=== PATIENT | male | born 1945 | race Caucasian/White ===

== ENCOUNTER 2019-06-12 09:09 | Inpatient (IN) | payer MEDICARE ==
--- NOTE | 2019-06-12 10:35 | ULT ---
EXAM: Left lower extremity venous ultrasound HISTORY: Left lower extremity pain and edema; nonhealing wound for one month COMPARISON: None TECHNIQUE: Multiplanar grayscale and color Doppler images were obtained in a left lower extremity kishor ous ultrasound. Spectral analysis of the Doppler waveforms were performed. FINDINGS: The common femoral vein, profunda femoral vein, superficial femoral vein, and popliteal vei n are normal in appearance without visible thrombus. These vessels demonstrate normal compression, flow, and augmentation. The posterior tibial vein and greater saphenous vein are patent without evidence of thrombus. IMPRESSION: No evidence of DVT.
[2019-06-12] MEDS ORDERED: Piperacillin/Tazobactam 4.5 GM VIAL ONE (12:12)
--- NOTE | 2019-06-12 12:16 | RAD ---
XR Foot Lt 3 View STANDARD History: Foot pain Comparison: Radiograph 2015 Findings: Soft tissue calcification along the great toe metatarsal phalangeal joint. There are erosio ns of the medial margin of the metatarsal head. Moderate midfoot degenerative changes, advanced for the comparison examination. No acute fracture. Impression: 1. Dense calcification/ossification along the great toe metatarsal phalangeal bursa can be seen with gout arthritis versus bursitis. 2. 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 3. Moderate midfoot dorsal edema. 4. Concern for intra-articular fracture of the proximal phalanx base small toe.
[2019-06-12 12:20] LABS: #Basophils 0.1 thou/uL (0.0-0.2); #Eosinphils 0.3 thou/uL (0.0-0.7); #Lymphocytes 1.4 thou/uL (1.20-3.40); #Monocytes 0.6 thou/uL (0.11-0.59); #Neutrophils 4.5 thou/uL (1.40-6.50); %Basophils 0.9 % (0.0-1.0); %Eosinophils 3.7 % (0.0-10.0); %Lymphocytes 21.2 % (21.0-51.0); %Monocytes 8.5 % (0.0-10.0); %Neutrophils 65.8 % (42.0-75.0); Hemoglobin 13.3 g/dL (14.0-18.0); Mean Corpuscular HGB CONC 33.8 g/dL (32.0-36.0); Mean Corpuscular Hemoglobin 28.6 pg (27.0-31.0); Mean Corpuscular Volume 84.6 fL (78.0-98.0); Mean Platelet Volume 7.3 fL (7.4-10.4); Platelet Count 202 thou/uL (130-400); RBC Distribution Width 13.2 % (11.5-14.5); Red Blood Cell (RBC) Count 4.64 mill/uL (4.70-6.10); White Blood Cell (WBC) Count 6.8 thou/uL (4.8-10.8)
[2019-06-12 12:47] LABS: ALT (SGPT) 23 U/L (8-55); AST (SGOT) 20 U/L (5-34); Albumin 4.7 g/dL (3.4-4.8); Alkaline Phosphatase 54 U/L (40-150); Anion Gap 14 mmol/L (10-20); BUN (Urea Nitrogen) 19 mg/dL (8.4-25.7); Bilirubin, Total 0.6 mg/dL (0.2-1.2); Calc. Creatinine Clearance 0 mL/min (70-130); Calcium 10.4 mg/dL (7.8-10.44); Carbon Dioxide 26 mmol/L (23-31); Chloride 101 mmol/L (98-107); Estimated GFR-MDRD 55; Globulin 2.9 g/dL (2.4-3.5); Glucose 132 mg/dL (83-110); Potassium 4.2 mmol/L (3.5-5.1); Protein, Total 7.6 g/dL (5.8-8.1); Sodium 137 mmol/L (136-145)
[2019-06-12 13:31] LABS: Bilirubin Negative (Negative); Blood, Urine Negative (Negative); Glucose, Urine (Dipstick) Negative (Negative); Leukocyte Negative (Negative); Nitrite Negative (Negative); Protein, Urine (Dipstick) Negative (Neg-Trace); Urobilinogen 0.2 mg/dL (Less than 2)
[2019-06-12 13:34] LABS: Clarity Clear (Clear)
[2019-06-12] MEDS ORDERED: Ondansetron ODT 4 MG TAB SL PRN (14:56)
[2019-06-12] MEDS ORDERED: Ondansetron PF 4 MG/2 ML Vial IVP PRN (14:56)
[2019-06-12] MEDS ORDERED: Sodium Chloride 0.9% 1,000 ML IV SCH (15:00)
[2019-06-12 15:11] VITALS: BMI 30.1
[2019-06-12] MEDS ORDERED: Piperacillin/Tazobactam 4.5 GM in Sodium Chloride 0.9% 100 ML IVPB SCH (18:00)
[2019-06-12] MEDS ORDERED: Acetaminophen 325 MG TAB PO PRN (18:25)
[2019-06-12] MEDS ORDERED: Dextrose 50% Abboject 50 ML SYRINGE SLOW IVP PRN (18:27)
[2019-06-12] MEDS ORDERED: Dextrose 5% in Water 1,000 ML IV PRN (18:27)
[2019-06-12] MEDS ORDERED: traMADol HCl 50 MG TAB PO PRN (18:31)
[2019-06-12] MEDS ORDERED: Piperacillin/Tazobactam 3.375 GM in Sodium Chloride 0.9% 100 ML IVPB SCH ×2 (18:45→22:00)
[2019-06-12] MEDS ORDERED: Vancomycin HCl 1 GM in Premix Bag 1 BAG IVPB SCH (19:00)
[2019-06-12] MEDS: Fish Oil 1,000 MG CAP PO SCH (20:22)
[2019-06-12] MEDS: metFORMIN 500 MG TAB PO SCH (20:22)
[2019-06-12] MEDS: Piperacillin/Tazobactam 3.375 GM in Sodium Chloride 0.9% 100 ML IVPB SCH (23:33)
[2019-06-13] MEDS ORDERED: Vancomycin HCl 1 GM in Premix Bag 1 BAG IVPB SCH (01:00)
--- NOTE | 2019-06-13 01:28 | HP ---
Admitting physician will be Dr. Pérez, Dr. Abundio Whitman, juan. HISTORY OF PRESENT ILLNESS: The patient is a 74-year-old male, who apparently has had some problems with an infection to his right foot. 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 The patient has not noted any fever, trauma, or injuries to his foot. He does note some foot lesions over the lateral aspect of his left foot. He notes he has had a previous history of foot infection to his left foot previously several years ago, was treated as an inpatient in the hospital. States that with IV antibiotics, he did well. Once again, he has not noted any fever. No trauma. No injuries have been noted. He has noted some pain to his left foot. He was seen and evaluated in the emergency room. A Doppler ultrasound of the left leg did not reveal any evidence of DVT. X-ray of the left foot was unremarkable. He has undergone an MRI, but those results are not present at this time. Otherwise, he has no medical complaints. He does have a history of insulin-dependent diabetes mellitus. He notes his blood sugars are generally under good control. He has had no previous history of heart disease. No previous history of peripheral vascular disease. ALLERGIES: HE HAS NO KNOWN ALLERGIES. CURRENT MEDICATIONS: 1. Januvia 100 mg daily. 2. Pioglitazone 15 mg daily. 3. Metformin 1000 mg daily. 4. Lantus insulin 20 units daily. 5. Norvasc 5 mg daily. 6. Lisinopril/hydrochlorothiazide 20/25 one daily. 7. Metoprolol 50 mg daily. 8. Simvastatin 40 mg daily. 9. Zetia 10 mg daily. 10. Niacin 500 mg once a day. 11. Fexofenadine 180 mg daily. 12. Aspirin 81 mg daily. PAST MEDICAL HISTORY: Positive for type 2 diabetes mellitus, hyperlipidemia, hypercholesterolemia, and hypertension. PAST SURGICAL HISTORY: Positive for cataract surgery and back surgery. SOCIAL AND PERSONAL HISTORY: He is retired. He does not smoke nor does he drink alcohol. REVIEW OF SYSTEMS: GI: Negative. : Negative. CARDIOVASCULAR: Otherwise negative. RESPIRATORY: Otherwise negative. NEUROLOGIC: Negative. PHYSICAL EXAMINATION: VITAL SIGNS: Temperature 98.2, pulse 70, respirations 16, O2 saturations 99%, BP 168/97. GENERAL: Alert and active male, does not appear in any distress. HEENT: Unremarkable. NECK: Supple. Full range of motion. No masses. No bruits. Thyroid is midline without thyromegaly or thyroid masses. LUNGS: Bilateral breath sounds. HEART: Reveals a regular rate and rhythm with grade 2/6 very soft systolic murmur heard best at the left sternal border. It is fairly high-pitched. No radiation to the neck is noted. ABDOMEN: Soft and nontender. Bowel sounds are present and active. No hepatosplenomegaly is noted. EXTREMITIES: The left foot is slightly swollen and edematous about the ankle and foot itself. There are some scaling lesions noted to the lateral left heel. There does not appear to be any purulent drainage. It is very mildly red. Capillary filling is noted to be good. Peripheral pulses noted to be intact to the dorsalis pedis and posterior tibial pulses. Edema extends upward past the ankle. There is a small abrasion noted to the mid tibial area. Once again, no purulent drainage otherwise noted. LABORATORY DATA: His hemoglobin is 13.3, hematocrit 39.2, white blood count 6.8. Sodium 137, potassium 4.2, chloride 101, CO2 26, BUN 19, creatinine 1.29. Urinalysis is otherwise clear. X-ray of the right foot is otherwise unremarkable except for degenerative changes. IMPRESSION: 1. Cellulitis of the left lower extremity. 2. History of type 2 diabetes mellitus. PLAN: 1. The patient has been started on Zosyn and vancomycin. We will continue those medicines. 2. We will continue current home medications. 3. Lower extremity MRI has been done. Reports are not available. Dr. Pérez will follow up with those reports in a.m. Job ID: [id number]
[2019-06-13] MEDS: Piperacillin/Tazobactam 3.375 GM in Sodium Chloride 0.9% 100 ML IVPB SCH ×4 (05:06→23:27)
--- NOTE | 2019-06-13 07:59 | MRI ---
MRI OF THE LEFT FOOT WITHOUT IV CONTRAST: INDICATION: Pain and swelling in the left foot status post antibiotics for 1.5 weeks. History of diabetes. COMPARISON: Left foot radiograph dated 06/12/2019 and 07/04/2015 prominent mid foot and great toe osteoarthrosis i s again demonstrated. Erosive change involving the medial aspect of the great toe at metatarsophalangeal head and great toe metatarsal tarsal articulation is also demonstrated with assoc iated periarticular calcification suspicious for changes of gout. There is some paratracheal erosions involving the great toe medial cuneiform articulation also possibly related to gouty arthrit is. Lisfranc alignment is preserved. There is no overt marrow signal abnormality is presence of osteomyelitis. There is diffuse edema of the dorsum of the foot, circumferential soft tissues of the ankle and distal foreleg. Medial and lateral flexor tendons are intact. The Achilles tendons are intact. Extensor tendons are intact. The ATFL, PTFL, calcaneofibular and syndesmotic ligaments are in tact. The medial deltoid is intact. There is a 6.7 x 10.7 mm osteochondral defect involving the medial talar dome. A 2 mm osteochondral defect is seen involving the lateral talar dome. Visualized p lantar fascia appears within normal limits. IMPRESSION: 1. Findings suspicious for gouty arthritis of the great toe metatarsophalangeal joint as well as the great toe metatarsal tarsal articulation. There is no overt evidence of osteomyelitis. 2. Diffuse edema of the dorsum of the foot, circumferential soft tissues of the ankle and distal fore leg. 3. Osteochondral defect of the medial talar dome with associated subchondral cystlike abnormalities. Tiny osteochondral defect is seen involving the lateral talar dome measuring approximately 2 mm. Transcribed Date/Time: 06/13/2019 9:40 AM
[2019-06-13] MEDS: Multivitamin W/ Minerals 1 TAB PO SCH (08:44)
[2019-06-13] MEDS: Amlodipine 5 MG TAB PO SCH (08:44)
[2019-06-13] MEDS: Simvastatin 40 MG TAB PO SCH (08:44)
[2019-06-13] MEDS: Ezetimibe 10 MG TAB PO SCH (08:45)
[2019-06-13] MEDS: Aspirin 81 mg Enteric Coated Tablet PO SCH (08:45)
[2019-06-13] MEDS: Enoxaparin Sodium 40 MG/0.4 ML SYRINGE SC SCH (08:45)
[2019-06-13] MEDS: Alogliptin 25 MG TAB PO SCH (08:45)
[2019-06-13] MEDS: Fish Oil 1,000 MG CAP PO SCH ×2 (08:45→19:41)
[2019-06-13] MEDS: metFORMIN 500 MG TAB PO SCH ×2 (08:45→19:43)
[2019-06-13] MEDS: Loratadine 10 MG TAB PO SCH (08:45)
[2019-06-13] MEDS ORDERED: Non-Formulary Item 1 EACH (Insulin Glargine,Hum.Rec.Anlog [Lantus Solostar] 20 UNITS) SC SCH (09:00)
[2019-06-13] MEDS: Insulin Glargine 20 UNITS in Pre-Filled Syringe SC SCH (09:07)
[2019-06-13] MEDS: Pioglitazone HCl 15 MG TAB PO SCH (09:09)
[2019-06-13] MEDS: Niacin 500 MG TAB PO SCH (09:09)
[2019-06-13] MEDS: Lisinopril/Hydrochlorothiazide 20/25 mg Tablet PO SCH (09:09)
[2019-06-13] MEDS: Insulin Regular 300 UNITS/3 ML VIAL SC PRN (12:19)
--- NOTE | 2019-06-13 14:24 | CON ---
DATE OF CONSULTATION: 06/13/2019 SUBJECTIVE: The patient was admitted yesterday for a left ankle and foot cellulitis. He has been seen over the past several weeks by Dr. Schilling and Dr. Colin. It was recommended that he come to the ER for evaluation and further treatment of his cellulitis. He was placed on vancomycin and Zosyn. This morning, he states his swelling has gone down remarkably. OBJECTIVE: VITAL SIGNS: Temperature 97.8, pulse 56, respirations 17, and blood pressure 173/82. HEART: Regular rate and rhythm with a 2/6 systolic ejection murmur. LUNGS: Clear. ABDOMEN: Soft. EXTREMITIES: Left ankle with 2+ edema. Moderate swelling of the foot, ankle and lower leg. He does have multiple abrasions of his left lateral foot and a scab of his anterior bell. LABORATORY DATA: Blood sugar 197 and 120. MRI of the foot shows no evidence of osteomyelitis. CRP was less than 0.5. ASSESSMENT: 1. Left foot and ankle cellulitis with abrasions. 2. Hypertension. 3. Hyperlipidemia. 4. Diabetes. PLAN: 1. Keep left leg elevated. 2. Continue IV Zosyn and vancomycin. 3. Recheck CBC, BMP, A1c in the a.m. 4. Hopefully, can discharge in the next 2 to 3 days. 5. Consult Wound Care Team to dress the wounds on the left. Job ID: [id number]
[2019-06-14] MEDS: Piperacillin/Tazobactam 3.375 GM in Sodium Chloride 0.9% 100 ML IVPB SCH ×3 (05:58→17:25)
[2019-06-14 06:23] LABS: #Basophils 0.1 thou/uL (0.0-0.2); #Eosinphils 0.4 thou/uL (0.0-0.7); #Lymphocytes 1.6 thou/uL (1.20-3.40); #Monocytes 0.6 thou/uL (0.11-0.59); #Neutrophils 3.1 thou/uL (1.40-6.50); %Basophils 1.4 % (0.0-1.0); %Eosinophils 6.7 % (0.0-10.0); %Lymphocytes 27.8 % (21.0-51.0); %Monocytes 10.2 % (0.0-10.0); %Neutrophils 53.9 % (42.0-75.0); Hemoglobin 12.5 g/dL (14.0-18.0); Mean Corpuscular Hemoglobin 27.9 pg (27.0-31.0); Mean Corpuscular Volume 84.5 fL (78.0-98.0); Mean Platelet Volume 7.4 fL (7.4-10.4); Platelet Count 196 thou/uL (130-400); RBC Distribution Width 13.2 % (11.5-14.5); Red Blood Cell (RBC) Count 4.47 mill/uL (4.70-6.10); White Blood Cell (WBC) Count 5.8 thou/uL (4.8-10.8)
[2019-06-14 06:30] LABS: Hemoglobin A1c 6.8 % (4.0-6.0)
[2019-06-14 06:42] LABS: Anion Gap 12 mmol/L (10-20); BUN (Urea Nitrogen) 14 mg/dL (8.4-25.7); Calc. Creatinine Clearance 87 mL/min (70-130); Calcium 10.1 mg/dL (7.8-10.44); Carbon Dioxide 27 mmol/L (23-31); Chloride 101 mmol/L (98-107); Estimated GFR-MDRD 64; Glucose 100 mg/dL (83-110); Potassium 3.5 mmol/L (3.5-5.1); Sodium 136 mmol/L (136-145)
[2019-06-14] MEDS: Pioglitazone HCl 15 MG TAB PO SCH (10:15)
[2019-06-14] MEDS: Fish Oil 1,000 MG CAP PO SCH ×2 (10:15→20:31)
[2019-06-14] MEDS: Loratadine 10 MG TAB PO SCH (10:15)
[2019-06-14] MEDS: Simvastatin 40 MG TAB PO SCH (10:16)
[2019-06-14] MEDS: Multivitamin W/ Minerals 1 TAB PO SCH (10:16)
[2019-06-14] MEDS: Niacin 500 MG TAB PO SCH (10:16)
[2019-06-14] MEDS: Ezetimibe 10 MG TAB PO SCH (10:16)
[2019-06-14] MEDS: Aspirin 81 mg Enteric Coated Tablet PO SCH (10:16)
[2019-06-14] MEDS: Alogliptin 25 MG TAB PO SCH (10:17)
[2019-06-14] MEDS: Amlodipine 5 MG TAB PO SCH (10:17)
[2019-06-14] MEDS: Lisinopril/Hydrochlorothiazide 20/25 mg Tablet PO SCH (10:18)
[2019-06-14] MEDS: metFORMIN 500 MG TAB PO SCH ×2 (10:19→20:34)
[2019-06-14] MEDS: Enoxaparin Sodium 40 MG/0.4 ML SYRINGE SC SCH (10:19)
[2019-06-14] MEDS: Insulin Glargine 20 UNITS in Pre-Filled Syringe SC SCH (10:20)
[2019-06-14 12:29] LABS: Vancomycin, Trough 9.9 ug/mL
--- NOTE | 2019-06-14 14:27 | PRG ---
DATE OF SERVICE: 06/14/2019 SUBJECTIVE: The patient's left foot redness and swelling, improving slowly. Still prominent. Feeling better. OBJECTIVE: VITAL SIGNS: Stable. Afebrile. Blood pressure slightly elevated at 143/76 and 174/79. The patient states due to lack of sleep. HEART: Regular rate and rhythm. LUNGS: Clear. ABDOMEN: Soft. EXTREMITIES: Left ankle and foot still with 1 to 2+ swelling, mild erythema, mildly improved, but still quite prominently swollen. LABORATORY DATA: White count 5.8, hemoglobin and hematocrit of 12 and 37. Electrolytes normal. Potassium 3.5. A1c 6.8. Lactic acid 10.1. ASSESSMENT: 1. Left foot and ankle cellulitis with abrasions. 2. Hypertension. 3. Hyperlipidemia. 4. Diabetes. PLAN: 1. Keep left leg elevated. 2. Continue IV Zosyn and vancomycin. 3. The patient is reluctantly agreed to stay for at least one more day. The patient definitely needs further hospitalization. Job ID: [id number]
[2019-06-14] MEDS: Vancomycin HCl 1.25 GM in Sodium Chloride 0.9% 250 ML 250 ML IVPB SCH (14:52)
[2019-06-14] MEDS: Zolpidem Tartrate 5 MG TAB PO PRN (20:35)
[2019-06-15] MEDS: Piperacillin/Tazobactam 3.375 GM in Sodium Chloride 0.9% 100 ML IVPB SCH ×5 (00:21→23:33)
[2019-06-15] MEDS: Vancomycin HCl 1.25 GM in Sodium Chloride 0.9% 250 ML 250 ML IVPB SCH ×3 (01:50→23:33)
[2019-06-15] MEDS: Fish Oil 1,000 MG CAP PO SCH ×2 (09:47→20:29)
[2019-06-15] MEDS: Pioglitazone HCl 15 MG TAB PO SCH (09:47)
[2019-06-15] MEDS: metFORMIN 500 MG TAB PO SCH ×2 (09:47→20:29)
[2019-06-15] MEDS: Niacin 500 MG TAB PO SCH (09:47)
[2019-06-15] MEDS: Lisinopril/Hydrochlorothiazide 20/25 mg Tablet PO SCH (09:48)
[2019-06-15] MEDS: Simvastatin 40 MG TAB PO SCH (09:48)
[2019-06-15] MEDS: Ezetimibe 10 MG TAB PO SCH (09:48)
[2019-06-15] MEDS: Aspirin 81 mg Enteric Coated Tablet PO SCH (09:48)
[2019-06-15] MEDS: Amlodipine 5 MG TAB PO SCH (09:49)
[2019-06-15] MEDS: Alogliptin 25 MG TAB PO SCH (09:49)
[2019-06-15] MEDS: Multivitamin W/ Minerals 1 TAB PO SCH (09:49)
[2019-06-15] MEDS: Enoxaparin Sodium 40 MG/0.4 ML SYRINGE SC SCH (09:49)
[2019-06-15] MEDS: Loratadine 10 MG TAB PO SCH (09:49)
[2019-06-15] MEDS: Insulin Glargine 20 UNITS in Pre-Filled Syringe SC SCH (09:50)
--- NOTE | 2019-06-15 11:35 | PRG ---
DATE OF SERVICE: 06/15/2019 SUBJECTIVE: The patient states the pain is much less swollen and less painful. OBJECTIVE: VITAL SIGNS: Temperature 97.9, pulse 72, respirations 18, pulse ox 98%, blood pressure 155/88 and 133/66. HEART: Regular rate and rhythm. LUNGS: Clear. ABDOMEN: Soft. EXTREMITIES: Left ankle and foot with decrease in swelling. Decrease in erythema, significantly improved. Still with some swelling. ASSESSMENT: 1. Left foot and ankle cellulitis with abrasions. 2. Hypertension. 3. Hyperlipidemia. 4. Diabetes. PLAN: 1. The patient has agreed to stay one more day. I think his foot will significantly improve. Hopefully, this will not reoccur. 2. Plan to send the patient home on clindamycin 300 t.i.d. for an additional 10 days and Bactroban. 3. Follow up with myself next week Tuesday or Tuesday. Job ID: [id number]
[2019-06-15] MEDS: Insulin Regular 300 UNITS/3 ML VIAL SC PRN (17:54)
[2019-06-15] MEDS: Zolpidem Tartrate 5 MG TAB PO PRN (20:37)
[2019-06-16] MEDS: Piperacillin/Tazobactam 3.375 GM in Sodium Chloride 0.9% 100 ML IVPB SCH (06:06)
[2019-06-16 07:53] VITALS: BP 137/77; TEMP 98.2
[2019-06-16] MEDS: Ezetimibe 10 MG TAB PO SCH (09:16)
[2019-06-16] MEDS: Fish Oil 1,000 MG CAP PO SCH (09:17)
[2019-06-16] MEDS: Alogliptin 25 MG TAB PO SCH (09:17)
[2019-06-16] MEDS: Simvastatin 40 MG TAB PO SCH (09:17)
[2019-06-16] MEDS: metFORMIN 500 MG TAB PO SCH (09:17)
[2019-06-16] MEDS: Amlodipine 5 MG TAB PO SCH (09:18)
[2019-06-16] MEDS: Multivitamin W/ Minerals 1 TAB PO SCH (09:18)
[2019-06-16] MEDS: Aspirin 81 mg Enteric Coated Tablet PO SCH (09:18)
[2019-06-16] MEDS: Enoxaparin Sodium 40 MG/0.4 ML SYRINGE SC SCH (09:19)
[2019-06-16] MEDS: Insulin Glargine 20 UNITS in Pre-Filled Syringe SC SCH (09:19)
[2019-06-16] MEDS: Loratadine 10 MG TAB PO SCH (09:19)
[2019-06-16] MEDS: Lisinopril/Hydrochlorothiazide 20/25 mg Tablet PO SCH (09:20)
[2019-06-16] MEDS: Pioglitazone HCl 15 MG TAB PO SCH (09:21)
[2019-06-16] MEDS: Niacin 500 MG TAB PO SCH (09:21)
--- NOTE | 2019-06-18 23:16 | PQF ---
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 Clinical indicators are provided on the bottom of this form for your review Can you please further specify the relationship of cellulitis and DM based on the clinical indicators below? Please check appropriate box(s): [ x Cellulitis due to Diabetes mellitus [ ] Cellulitis not due to Diabetes mellitus [ ] Other diagnosis please specify [ ] Unable to determine In addition, please specify: Present on Admission (POA): [ x] Yes [ ] No [ ] Unable to determine For continuity of documentation, please document condition throughout progress notes and discharge summary. Thank You. CLINICAL INDICATORS - SIGNS / SYMPTOMS / LABS H&P p1 06/12 Dr. Whitman- Arthur apparently was seeing a local mold sprayer, had been placed on ciprofloxacin and was instructed to come to the ER due to failure of therapy. H&P p1 06/12 Dr. Whitman- Arthur does have a history of insulin-dependent diabetes mellitus Consult p1 06/13 Dr. Pérez- blood sugar 197 and 120 Consult p1 06/13 Dr. Pérez- left ankle with 2+ edema. Moderate swelling of the foot, ankle and lower leg RISKS: Type 2 DM- H&P 06/12 Dr. Whitman Cellulitis of the left lower extremity- H&P 06/12 Dr. Whitman Hypercholesterolemia-H&P 06/12 Dr. Whitman previous history of foot infection- H&P 06/12 Dr. Whitman TREATMENT: IV Vancomycin- NOV 25 IV Piperacillin/ Tazobactam- NOV 25 keep left leg elevated-PN 06/14 Dr. Pérez IV Fluids- MAR 06/12 (This form is maintained as a part of the permanent medical record) 2014 [employer]. All Rights Reserved [email or web address] [not provided] MTDD
== END 2019-06-16 10:15 | disposition home or self-care (01) | DRG 638 ==
LOC: ERS 09:09 → ERHOLD 12:52 → T4-B 14:28
PROVIDERS: ADMIT Family Medicine; ATTEND Family Medicine
DX: E11.628 Type 2 diabetes mellitus with other skin complications (principal); L03.116 Cellulitis of left lower limb; E78.00 Pure hypercholesterolemia, unspecified; I10 Essential (primary) hypertension; Z79.4 Long term (current) use of insulin; Z79.82 Long term (current) use of aspirin; Z79.899 Other long term (current) drug therapy
CPT/HCPCS: 36415; 36416; 80048; 80053; 80202; 81003; 83036; 83605; 85025; 85652; 86140; 87040; 96365; 96367; J1650; J1815; J2543; J3370; J3490; J7050

== ENCOUNTER 2019-09-20 11:35 | Outpatient (CLI) | payer MEDICARE ==
--- NOTE | 2019-09-20 12:07 | RAD ---
Acute abdominal series INDICATION: 4 quadrant abdominal pain COMPARISON: None. FINDINGS: CHEST: LUNGS: Clear. Cardiomediastinal silhouette: There is mild cardiomegaly Pleural effusion or pneumothorax: Negative. Pneumoperitoneum: Negative. ABDOMEN: Bowel gas pattern: Unobstructed. Abnormal calcifications: None Osseous structures: There is scattered degenerative and osteoarthritic change present. No acute fract ure or subluxation demonstrated. Additional findings: None. IMPRESSION: 1. Mild cardiomegaly without evidence of cardiac decompensation. 2. No definite acute abnormality within the abdomen.
== END 2019-09-20 11:36 | disposition home or self-care (01) ==
LOC: BICRAD 11:35
PROVIDERS: ATTEND Family Medicine
DX: R10.30 Lower abdominal pain, unspecified (principal); I51.7 Cardiomegaly
CPT/HCPCS: 74022; 80061; 81001; G0103; 36415; 80053; 84443; 85025

== ENCOUNTER 2019-09-21 12:11 | Day surgery (SDC) | payer MEDICARE ==
[~2019-09-21 12:11] MED LIST: Lidocaine 1% PF 5 ML VIAL ONE; PROPOFOL 200 MG/20 ML VIAL ONE
[2019-09-21] MEDS ORDERED: Midazolam HCl 5 mg/5 ml Vial ONE (13:44)
[2019-09-21] MEDS ORDERED: Midazolam HCl 2 mg/2 ml Vial ONE (13:48)
--- NOTE | 2019-09-21 14:38 | CT ---
CT Abdomen Pelvis W Con History: Acute abdominal pain Comparison: Abdominal radiograph prior day Findings: Atelectatic changes in the lung bases although detailed evaluation is limited due to extens melvi motion. Exophytic mass interpolar left kidney measures 62 Hounsfield units. There is a hypodensity within the peripheral aspect of the spleen, abutting the capsule, measuring 1.8 cm in gre atest dimension. Cholelithiasis without evidence for cholecystitis. Prostate is markedly enlarged. Moderate diverticular disease sigmoid colon without active current inf ormation. Appendix is visualized and is normal. The aortoiliac contour is nonaneurysmal. No retroperitoneal aortic adenopathy. Liver is unremarkable. Pancreas is unremarkable. Adrenal glands are unremarkable. No suspicious osteolytic or osteoblastic lesions. Moderate degenerative change lower lumbar spine. Impression: 1. No acute inflammatory process within the abdomen or pelvis. 2. Exophytic mass interpolar left kidney measuring 62 Hounsfield units and 1.7 cm in size. Dedicated renal protocol MRI recommended. 3. Incompletely evaluated hypodensity of the spleen measuring up to 1.8 cm abutting the capsule. Bhanu tionally interrogated on the renal protocol MRI. 4. Marked prostatomegaly. 5. Cholelithiasis without cholecystitis.
--- NOTE | 2019-09-21 16:45 | EKG ---
Test Reason : PREOP Blood Pressure : / mmHG Vent. Rate : 086 BPM Atrial Rate : 086 BPM P-R Int : 196 ms QRS Dur : 082 ms QT Int : 374 ms P-R-T Axes : 027 -05 083 degrees QTc Int : 447 ms Sinus rhythm with frequent Premature ventricular complexes Minimal voltage criteria for LVH, may be normal variant Nonspecific T wave abnormality Abnormal ECG When compared with ECG of 28-NOV-2013 12:41, Premature ventricular complexes are now Present Confirmed by DR. Romy SHIN ([id number]) on 09/21/2019 4:45:29 PM Referred By: GURPREET Confirmed By:DR. Romy SHIN
== END 2019-09-21 14:52 | disposition home or self-care (01) ==
LOC: SDC/OP 12:11 → EDSTATUS 15:30
PROVIDERS: ATTEND Family Medicine
DX: R10.30 Lower abdominal pain, unspecified (principal); E11.9 Type 2 diabetes mellitus without complications; E78.5 Hyperlipidemia, unspecified; I10 Essential (primary) hypertension; Z79.82 Long term (current) use of aspirin; Z79.84 Long term (current) use of oral hypoglycemic drugs; Z79.899 Other long term (current) drug therapy
CPT/HCPCS: 36416; 74177; 93005; 93010; J2001; J2250; J2704

== ENCOUNTER 2019-09-28 10:09 | Day surgery (SDC) | payer MEDICARE ==
[2019-09-27 11:25] VITALS: BMI 29.2
[2019-09-28] MEDS ORDERED: Midazolam HCl 2 mg/2 ml Vial ONE (11:33)
[2019-09-28] MEDS ORDERED: Fentanyl 100 MCG/2 ML VIAL ONE (11:48)
[2019-09-28] MEDS ORDERED: SUGAMMADEX SODIUM 200 MG/2 ML VIAL ONE (11:48)
[2019-09-28] MEDS ORDERED: PROPOFOL 200 MG/20 ML VIAL ONE (14:29)
--- NOTE | 2019-09-28 14:57 | MRI ---
MRI ABDOMEN WITH AND WITHOUT IV CONTRAST: HISTORY: Mass in the left kidney. CORRELATION: CT abdomen and pelvis of 09/21/2019. FINDINGS: There is a 15 mm peripheral cyst in the posterior aspect of the spleen with low T1, high T2 signal an d no postcontrast enhancement. The spleen, pancreas, adrenal glands, and right kidney are normal. Multiple gallstones are present. There is a 22 x 16 x 15 mm exophytic mass arising from the outer cortex of the left upper kidney with high T1, low T2 signal, and no postcontrast enhancement on the subtracted images (intracellular meth emoglobin/ early subacute hemorrhage). A tiny cyst is seen in the medial cortex of the left kidney. No free fluid or lymphadenopathy is seen in the abdomen. No aneurysmal dilatation of the abdominal a oly is noted. The bone marrow signal is normal. IMPRESSION: 1. Cholelithiasis. 2. Splenic cyst. 3. Exophytic mass arising from the left kidney consistent with hematoma. 4. Cholelithiasis. POS: TPC
[2019-09-28] MEDS ORDERED: Magnevist 469MG/ML 20 ML VIAL ONE (15:36)
== END 2019-09-28 14:52 | disposition home or self-care (01) ==
LOC: SDC/OP 10:09
PROVIDERS: ATTEND Family Medicine
DX: N28.89 Other specified disorders of kidney and ureter (principal); K80.20 Calculus of gallbladder without cholecystitis without obstruction; D73.4 Cyst of spleen; G89.29 Other chronic pain; M25.512 Pain in left shoulder; E11.9 Type 2 diabetes mellitus without complications; E78.5 Hyperlipidemia, unspecified; I10 Essential (primary) hypertension; I35.0 Nonrheumatic aortic (valve) stenosis; Z79.4 Long term (current) use of insulin; Z79.82 Long term (current) use of aspirin; Z79.899 Other long term (current) drug therapy
CPT/HCPCS: 36415; 36416; 74183; 82565; A9579; J2250; J2704; J3010

== ENCOUNTER 2019-10-29 07:51 | Outpatient (CLI) | payer MEDICARE ==
[2019-10-29 12:40] LABS: #Basophils 0.1 thou/uL (0.0-0.2); #Eosinphils 0.2 thou/uL (0.0-0.7); #Monocytes 0.7 thou/uL (0.11-0.59); %Basophils 0.7 % (0.0-1.0); %Eosinophils 2.7 % (0.0-10.0); %Lymphocytes 25.1 % (21.0-51.0); %Monocytes 9.1 % (0.0-10.0); %Neutrophils 62.4 % (42.0-75.0); Hemoglobin 13.6 g/dL (14.0-18.0); Mean Corpuscular HGB CONC 34.1 g/dL (32.0-36.0); Mean Corpuscular Hemoglobin 28.2 pg (27.0-31.0); Mean Corpuscular Volume 82.7 fL (78.0-98.0); Mean Platelet Volume 7.9 fL (7.4-10.4); Platelet Count 178 thou/uL (130-400); RBC Distribution Width 13.4 % (11.5-14.5); Red Blood Cell (RBC) Count 4.81 mill/uL (4.70-6.10); White Blood Cell (WBC) Count 7.9 thou/uL (4.8-10.8)
[2019-10-29 13:03] LABS: ALT (SGPT) 24 U/L (8-55); AST (SGOT) 15 U/L (5-34); Albumin 4.7 g/dL (3.4-4.8); Alkaline Phosphatase 63 U/L (40-110); Anion Gap 10 mmol/L (10-20); BUN (Urea Nitrogen) 18 mg/dL (8.4-25.7); Bilirubin, Total 0.9 mg/dL (0.2-1.2); Calc. Creatinine Clearance 0 mL/min (70-130); Calcium 10.2 mg/dL (7.8-10.44); Carbon Dioxide 29 mmol/L (23-31); Chloride 97 mmol/L (98-107); Estimated GFR-MDRD 61; Globulin 2.7 g/dL (2.4-3.5); Glucose 239 mg/dL (83-110); Potassium 4.3 mmol/L (3.5-5.1); Protein, Total 7.4 g/dL (5.8-8.1); Sodium 132 mmol/L (136-145)
== END 2019-10-29 07:52 | disposition home or self-care (01) ==
LOC: LABBT 07:51
PROVIDERS: ATTEND Surgery
DX: Z01.818 Encounter for other preprocedural examination (principal); K43.9 Ventral hernia without obstruction or gangrene; K80.20 Calculus of gallbladder without cholecystitis without obstruction
CPT/HCPCS: 80053; 85025

== ENCOUNTER 2019-10-30 07:08 | Day surgery (SDC) | payer MEDICARE ==
[2019-10-29 10:35] VITALS: BMI 29.2
[2019-10-30] MEDS ORDERED: Midazolam HCl 2 mg/2 ml Vial ONE ×3 (09:35→12:16)
[2019-10-30] MEDS ORDERED: Phenylephrine HCL 10 MG/ML VIAL ONE (10:28)
[2019-10-30] MEDS ORDERED: Fentanyl 100 MCG/2 ML VIAL ONE ×3 (10:28→12:51)
[2019-10-30] MEDS ORDERED: Lidocaine 1% w/Epinephrine 1:100K 20 ML VIAL ONE (10:34)
[2019-10-30] MEDS ORDERED: Bupivacaine 0.25% HCL 30 ML VIAL ONE (10:34)
[2019-10-30] MEDS ORDERED: Lidocaine 1% PF 5 ML VIAL ONE (13:18)
[2019-10-30] MEDS ORDERED: Labetalol HCl 100 MG/20 ML VIAL ONE (13:18)
[2019-10-30] MEDS ORDERED: Ondansetron PF 4 MG/2 ML Vial ONE (13:18)
[2019-10-30] MEDS ORDERED: PHENYLEPHRINE-NS 100 MCG/ML 10 ML SYRINGE ONE (13:18)
[2019-10-30] MEDS ORDERED: Glycopyrrolate 0.2 MG/ML 5 ML SYRINGE ONE (13:18)
[2019-10-30] MEDS ORDERED: PROPOFOL 200 MG/20 ML VIAL ONE (13:18)
[2019-10-30] MEDS ORDERED: Rocuronium Bromide 10 MG/ML (10ML VIAL) ONE (13:18)
[2019-10-30] MEDS ORDERED: Dexamethasone 20 MG/5 ML VIAL ONE (13:18)
--- NOTE | 2019-10-31 08:12 | OP ---
DATE OF PROCEDURE: 10/30/2019 PREOPERATIVE DIAGNOSES: 1. Right upper abdomen pain with gallstones. 2. Question of spigelian hernia, right abdomen. POSTOPERATIVE DIAGNOSES: 1. Right upper abdomen pain with gallstones. 2. Question of spigelian hernia, right abdomen. PROCEDURE: Diagnostic laparoscopy, laparoscopic cholecystectomy. ANESTHESIA: General. ESTIMATED BLOOD LOSS: Minimal. COMPLICATIONS: None. SPECIMEN: Gallbladder. FINDINGS: No evidence of ventral abdominal wall hernia. TECHNIQUE: The patient was taken to the operating room and laid supine on the operating room table. After general anesthetic was obtained, incision made above the umbilicus, cautery dissected down to and score the fascia. Abdominal cavity entered bluntly using a Ghada clamp. The Suresh with balloon was placed, the balloon inflated. High-flow pneumoperitoneum was obtained. Upper midline 5 mm port, 2 right upper quadrant 5 mm ports were placed under direct visualization. Retrograde view of the abdomen showed there to be no obvious hernias in the entire examined ventral abdominal area. Decision was made to remove the gallbladder. The peritoneum of the gallbladder was opened anteriorly and posteriorly. The critical view of triangle was seen showing only the cystic duct and cystic artery branching medial to lateral. There were no other branching structures. Two clips were placed proximally and one distally in the cystic duct, cut using laparoscopic scissors. The cystic artery was taken in the same way. Cautery was used to dissect the gallbladder, gallbladder fossa and gallbladder was placed in EndoCatch bag and brought out through the Suresh. There was no bleeding or bile in the liver bed. All port sites were infiltrated using local anesthetic. All ports were removed under camera visualization. Pneumoperitoneum was let down. PDS was used to close the fascial defect above the umbilicus. All incisions were irrigated and closed using 4-0 Monocryl and Dermabond. The patient was sent to Recovery in stable condition. All instrument counts, needle counts, lap counts were correct. Job ID: [id number]
== END 2019-10-30 15:15 | disposition home or self-care (01) ==
LOC: SDC 07:08
PROVIDERS: ATTEND Surgery
PROC: 0FT44ZZ Resection of Gallbladder, Percutaneous Endoscopic Approach (ICD-10-PCS; principal; 2019-10-30)
DX: K80.10 Calculus of gallbladder with chronic cholecystitis without obstruction (principal); I10 Essential (primary) hypertension; E11.9 Type 2 diabetes mellitus without complications; E78.5 Hyperlipidemia, unspecified; I35.0 Nonrheumatic aortic (valve) stenosis; Z79.4 Long term (current) use of insulin; Z79.82 Long term (current) use of aspirin; Z79.899 Other long term (current) drug therapy
CPT/HCPCS: 36416; 88304; J0690; J1100; J1642; J2001; J2250; J2370; J2405; J2704; J3010; S0020

== ENCOUNTER 2021-01-21 11:07 | Outpatient (CLI) | payer MEDICARE ==
[2021-01-21 18:21] LABS: SARS-CoV-2 PCR by NAA Not Detected (NotDetected)
== END 2021-01-21 11:08 | disposition home or self-care (01) ==
LOC: LABBT 11:07
PROVIDERS: ATTEND Internal Medicine Gastroenterology
DX: Z01.812 Encounter for preprocedural laboratory examination (principal); Z20.822 Contact with and (suspected) exposure to COVID-19
CPT/HCPCS: U0003; U0005; 87635

== ENCOUNTER 2021-01-22 07:09 | Day surgery (SDC) | payer MEDICARE ==
[2021-01-21 09:53] VITALS: BMI 31.6
[2021-01-22] MEDS ORDERED: Midazolam HCl 2 mg/2 ml Vial ONE ×2 (09:05→09:33)
[2021-01-22] MEDS ORDERED: Propofol 500 MG/50 ML VIAL ONE (09:06)
[2021-01-22] MEDS ORDERED: Ketamine 50 MG/ML (10ML VIAL) ONE (09:06)
[2021-01-22 09:52] LABS: Anion Gap 14 mmol/L (10-20); BUN (Urea Nitrogen) 13 mg/dL (8.4-25.7); Calc. Creatinine Clearance 82 mL/min (70-130); Calcium 10.6 mg/dL (7.8-10.44); Carbon Dioxide 26 mmol/L (23-31); Chloride 100 mmol/L (98-107); Glucose 227 mg/dL (83-110); Potassium 4.4 mmol/L (3.5-5.1); Sodium 136 mmol/L (136-145)
[2021-01-22] MEDS ORDERED: Ondansetron PF 4 MG/2 ML Vial ONE (11:05)
[2021-01-22] MEDS ORDERED: Iopamidol 370 76% 100 ML VIAL ONE (11:20)
== END 2021-01-22 11:50 | disposition home or self-care (01) ==
LOC: SDC/OP 07:09 → EDSTATUS 09:30 → SDC/OP 11:50
PROVIDERS: ATTEND Internal Medicine Gastroenterology
DX: R10.11 Right upper quadrant pain (principal); N28.89 Other specified disorders of kidney and ureter; K57.30 Diverticulosis of large intestine without perforation or abscess without bleeding; N40.0 Benign prostatic hyperplasia without lower urinary tract symptoms; I11.9 Hypertensive heart disease without heart failure; J98.11 Atelectasis; D50.9 Iron deficiency anemia, unspecified; I35.0 Nonrheumatic aortic (valve) stenosis; E78.00 Pure hypercholesterolemia, unspecified; Z79.4 Long term (current) use of insulin; Z79.82 Long term (current) use of aspirin; Z79.899 Other long term (current) drug therapy
CPT/HCPCS: 36415; 74178; 80048; 93005; 93010; J2250; J2405; J2704; Q9967

== ENCOUNTER 2023-05-18 08:29 | Outpatient (CLI) | payer MEDICARE ==
[2023-05-18 09:30] LABS: #Basophils 0.1 10x3/uL (0.0-0.2); #Eosinphils 0.3 10x3/uL (0.0-0.5); #Monocytes 0.7 10x3/uL (0.0-1.1); #Neutrophils 3.4 10x3/uL (1.5-8.4); %Eosinophils 4.8 % (0.0-6.0); %Lymphocytes 25.9 % (18.0-47.0); %Monocytes 11.7 % (0.0-10.0); %Neutrophils 56.4 % (40.0-75.0); Hematocrit 37.6 % (38.8-50.0); Hemoglobin 11.9 g/dL (13.5-17.5); Mean Corpuscular HGB CONC 31.6 g/dL (32.0-36.0); Mean Corpuscular Hemoglobin 24.1 pg (27.0-33.0); Mean Corpuscular Volume 76.1 fl (81.2-95.1); Mean Platelet Volume 9.5 fl (7.4-10.4); Platelet Count 188 10x3/uL (150-450); RBC Distribution Width 22.7 % (11.5-14.5); Red Blood Cell (RBC) Count 4.94 10x6/uL (4.32-5.72); White Blood Cell (WBC) Count 6.1 10x3/uL (3.5-10.5)
[2023-05-18 09:50] LABS: INR-International Normal Ratio 1.1; PTT 27.3 sec (22.0-33.0); Prothrombin Time 11.3 sec (9.5-12.1)
[2023-05-18 09:51] LABS: ALT (SGPT) 26 U/L (8-55); AST (SGOT) 25 U/L (5-34); Albumin 4.3 g/dL (3.4-4.8); Alkaline Phosphatase 57 U/L (40-110); Anion Gap 16 mmol/L (10-20); BUN (Urea Nitrogen) 18 mg/dL (8.4-25.7); Bilirubin, Direct 0.3 mg/dL (0.1-0.3); Bilirubin, Total 0.8 mg/dL (0.2-1.2); Calc. Creatinine Clearance 0 mL/min (70-130); Calcium 9.2 mg/dL (7.8-10.44); Carbon Dioxide 23 mmol/L (23-31); Cardiac Risk 4.8 (Less than 4.5); Chloride 104 mmol/L (98-107); Cholesterol 148 mg/dl (< 200 Desired); Estimated GFR 50; Globulin 2.2 g/dL (2.4-3.5); Glucose 183 mg/dL (83-110); HDL Cholesterol 31 mg/dL (>60 Neg Risk); LDL Cholesterol, Calculated 83 mg/dL; Potassium 4.5 mmol/L (3.5-5.1); Protein, Total 6.5 g/dL (5.8-8.1); Sodium 138 mmol/L (136-145); Triglycerides 171 mg/dL (Less than 150)
== END 2023-05-18 08:30 | disposition home or self-care (01) ==
LOC: LABBT 08:29
PROVIDERS: ATTEND Internal Medicine Cardiovascular Disease
DX: Z01.818 Encounter for other preprocedural examination (principal); I35.0 Nonrheumatic aortic (valve) stenosis
CPT/HCPCS: 71045; 80053; 80061; 80076; 85025; 85610; 85730

== ENCOUNTER → 2023-05-20 | Day surgery (SDC) | payer MEDICARE ==
[2023-05-18 09:00] VITALS: BMI 29.1
[~2023-05-20] MED LIST changes: +Heparin 10,000 UNITS/ 10 ML VIAL ONE; +Lidocaine 1% (PF) 30 ML VIAL ONE; -Lidocaine 1% PF 5 ML VIAL ONE; +Midazolam HCl 2 mg/2 ml Vial ONE; -PROPOFOL 200 MG/20 ML VIAL ONE; +fentaNYL 50 mcg/mL 1 mL Vial ONE; +hydrALAZINE 20 MG/ML VIAL ONE
== END ==
LOC: CCL 05:50
PROVIDERS: ATTEND Internal Medicine Cardiovascular Disease
PROC: 4A023N8 Measurement of Cardiac Sampling and Pressure, Bilateral, Percutaneous Approach (ICD-10-PCS; principal; 2023-05-20)
DX: R07.89 Other chest pain (principal); I35.0 Nonrheumatic aortic (valve) stenosis; I10 Essential (primary) hypertension; E11.9 Type 2 diabetes mellitus without complications; E78.5 Hyperlipidemia, unspecified; I73.9 Peripheral vascular disease, unspecified; I65.23 Occlusion and stenosis of bilateral carotid arteries; Z86.16 Personal history of COVID-19; Z79.899 Other long term (current) drug therapy; Z79.82 Long term (current) use of aspirin; Z79.84 Long term (current) use of oral hypoglycemic drugs
CPT/HCPCS: 93460; C1751; C1769 ×2; J0360; J3010; C1894; J1644; J2001; J2250

== ENCOUNTER 2023-07-08 09:44 | Outpatient (CLI) | payer MEDICARE | END 2023-07-08 09:45 | disposition home or self-care (01) | LOC: LABBT 09:44 | PROVIDERS: ATTEND Thoracic Surgery (Cardiothoracic Vascular Surgery) | DX: Z01.818 Encounter for other preprocedural examination (principal); I35.0 Nonrheumatic aortic (valve) stenosis; I25.10 Atherosclerotic heart disease of native coronary artery without angina pectoris | CPT/HCPCS: 71046; 93005; 93010 ==

== ENCOUNTER 2023-07-08 10:00 | Inpatient (IN) | payer MEDICARE ==
[2023-07-08 10:54] LABS: Hematocrit 38.4 % (38.8-50.0); Mean Corpuscular HGB CONC 33.9 g/dL (32.0-36.0); Mean Corpuscular Volume 82.6 fl (81.2-95.1); Mean Platelet Volume 9.1 fl (7.4-10.4); Platelet Count 187 10x3/uL (150-450); Red Blood Cell (RBC) Count 4.65 10x6/uL (4.32-5.72)
[2023-07-08 11:21] LABS: Anion Gap 15 mmol/L (10-20); BUN (Urea Nitrogen) 20 mg/dL (8.4-25.7); Calc. Creatinine Clearance 0 mL/min (70-130); Calcium 9.7 mg/dL (7.8-10.44); Carbon Dioxide 24 mmol/L (23-31); Chloride 102 mmol/L (98-107); Estimated GFR 65; Glucose 145 mg/dL (83-110); INR-International Normal Ratio 1.1; PTT 28.3 sec (22.0-33.0); Potassium 4.2 mmol/L (3.5-5.1); Prothrombin Time 11.5 sec (9.5-12.1); Sodium 137 mmol/L (136-145)
[2023-07-11] MEDS ORDERED: PHENYLEPHRINE-NS 100 MCG/ML 10 ML SYRINGE ONE (06:56)
[2023-07-11] MEDS ORDERED: Dexamethasone 4 mg/ml Vial ONE (06:56)
[2023-07-11] MEDS ORDERED: Albumin 5% 500 ML ONE (06:56)
[2023-07-11] MEDS ORDERED: Bupivacaine PF 0.5% 30 ML VIAL ONE (06:56)
[2023-07-11] MEDS ORDERED: EPINEPHrine 1 MG/ML AMP ONE (06:56)
[2023-07-11] MEDS ORDERED: Milrinone 10 MG/10 ML VIAL ONE ×2 (06:59→07:00)
[2023-07-11] MEDS ORDERED: Dexmedetomidine 200 MCG/2 ML VIAL ONE (06:59)
[2023-07-11] MEDS ORDERED: Fentanyl 250 MCG/5 ML VIAL ONE (06:59)
[2023-07-11] MEDS ORDERED: Midazolam HCl 2 mg/2 ml Vial ONE ×2 (06:59→08:18)
[2023-07-11] MEDS ORDERED: Vancomycin (BATCH) 1.5 GM/300 ML BAG ONE (07:27)
[2023-07-11] MEDS ORDERED: Lidocaine 1% PF 5 ML VIAL ONE ×2 (08:18→08:57)
[2023-07-11] MEDS ORDERED: Potassium Chloride 60 MEQ/30 ML VIAL ONE (08:57)
[2023-07-11] MEDS ORDERED: Heparin 5,000 UNITS/ML VIAL ONE (08:57)
[2023-07-11] MEDS ORDERED: Lidocaine 2% PF 100 mg/5 ml Syringe ONE (08:57)
[2023-07-11] MEDS ORDERED: Vecuronium 10 MG VIAL ONE (08:57)
[2023-07-11] MEDS ORDERED: Nitroglycerin 50 MG/250 ML BOT ONE (08:57)
[2023-07-11] MEDS ORDERED: Vancomycin 1 GM VIAL ONE (08:57)
[2023-07-11] MEDS ORDERED: Sodium Bicarb 50 MEQ/50 ML VIAL ONE (08:57)
[2023-07-11] MEDS ORDERED: Thrombin 5000 UNITS/5 ML VIAL ONE (08:57)
[2023-07-11] MEDS ORDERED: Norepinephrine 4 MG/4 ML VIAL ONE (08:57)
[2023-07-11] MEDS ORDERED: Papaverine 60 MG/2 ML VIAL ONE (08:57)
[2023-07-11] MEDS ORDERED: Protamine Sulfate 250 MG/25 ML VIAL ONE (08:57)
[2023-07-11] MEDS ORDERED: Cardioplegic Soln 1,000 ML BAG ONE (08:57)
[2023-07-11] MEDS ORDERED: Succinylcholine 200 MG/10 ml SYRINGE FS ONE (08:57)
[2023-07-11] MEDS ORDERED: Heparin 30,000 units/30 ml VIAL ONE (08:57)
[2023-07-11] MEDS ORDERED: Calcium Chloride 1 GM/10 ML Abboject SYRINGE ONE (08:57)
[2023-07-11] MEDS ORDERED: Mannitol 12.5 GM/50 ML ONE (08:57)
[2023-07-11] MEDS ORDERED: Magnesium 5 GM/10 ML VIAL ONE (08:57)
[2023-07-11] MEDS ORDERED: Aminocaproic Acid 5 GM/20 ML VIAL ONE (08:57)
[2023-07-11] MEDS ORDERED: Insulin Regular 300 UNITS/3 ML VIAL ONE (10:42)
[2023-07-11] MEDS ORDERED: Bisacodyl 5 MG TAB PO PRN (13:00)
[2023-07-11] MEDS ORDERED: Guaifenesin DM 100-10/5 ML UDCUP PO PRN (13:00)
[2023-07-11] MEDS ORDERED: Mag-Al 1200 mg/1200 mg/30 ML UDCUP PO PRN (13:00)
[2023-07-11] MEDS ORDERED: HYDROcodone/Acetaminophen 5/325 mg Tablet PO PRN (13:00)
[2023-07-11] MEDS ORDERED: D5 1/2 NS w/20 mEq KCL 1,000 ML IV SCH (13:00)
[2023-07-11] MEDS ORDERED: Post-Op Insulin Drip Protocol IVPB SCH (13:00)
[2023-07-11] MEDS ORDERED: NOREPINEPHRINE 8 MG/250 ML-D5W 250 ML IVPB PRN (13:00)
[2023-07-11] MEDS ORDERED: Magnesium 2 GM/50 ML(in water) 2 GM in Premix 1 BAG IVPB SCH (13:00)
[2023-07-11] MEDS ORDERED: Promethazine HCl 25 MG/ML VIAL IM PRN (13:00)
[2023-07-11] MEDS ORDERED: Hetastarch 6% 500 ML 500 ML IVPB PRN (13:00)
[2023-07-11] MEDS ORDERED: Ipratropium/Albuterol 3 ML NEB NEB PRN (13:00)
[2023-07-11] MEDS ORDERED: Bisacodyl 10 MG SUPP PR PRN (13:00)
[2023-07-11] MEDS ORDERED: Morphine 2 MG/ML VIAL SLOW IVP PRN (13:00)
[2023-07-11] MEDS ORDERED: Nitroglycerin 50 MG/250 ML BOT 250 ML IVPB PRN (13:00)
[2023-07-11] MEDS ORDERED: fentaNYL 50 mcg/mL 1 mL Vial SLOW IVP PRN (13:00)
[2023-07-11] MEDS ORDERED: hydrALAZINE 20 MG/ML VIAL SLOW IVP PRN (13:00)
[2023-07-11] MEDS ORDERED: HUMULIN R 100 UNITS in Sodium Chloride 0.9% 100 ML IVPB SCH (13:15)
[2023-07-11] MEDS ORDERED: Glucagon 1 MG/ML KIT SC PRN (13:15)
[2023-07-11] MEDS ORDERED: Dextrose 50% Abboject 50 ML SYRINGE SLOW IVP PRN (13:15)
[2023-07-11] MEDS ORDERED: Insulin Regular 300 UNITS/3 ML VIAL SC PRN (13:15)
[2023-07-11] MEDS ORDERED: Dextrose 5% in Water 1,000 ML IV PRN (13:15)
[2023-07-11 13:26] LABS: Actual Bicarbonate (HCO3a) 19.8 mEq/L (22-28); Base Excess (BEa) -5.2 mEq/L (-2.0 to +3.0); CO2 Tension 36.5 mmHg (35.0-45.0); Calcium, Ionized (arterial) 1.14 mmol/L (1.12-1.30); Carboxyhemoglobin (COHb) 0.4 gm% (0.0-3.0); Hematocrit-ABG 36 % (42.0-52.0); Hemoglobin (Hb) 12.1 g/dL (14.0-18.0); O2 Tension (PaO2), arterial 125.2 mmHg (> 70.0); Potassium - ABG Lab 3.75 mmol/L (3.70-5.30); pH, Arterial 7.352 (7.35-7.45)
[2023-07-11 13:28] LABS: Puncture Site Arterial Line
[2023-07-11 13:31] LABS: #Eosinphils 0.2 thou/uL (0.0-0.7); #Monocytes 0.7 thou/uL (0.11-0.59); #Neutrophils 8.4 thou/uL (1.40-6.50); %Basophils 0.3 % (0.0-1.0); %Eosinophils 2.2 % (0.0-10.0); %Lymphocytes 13.9 % (21.0-51.0); %Monocytes 6.5 % (0.0-10.0); %Neutrophils 76.6 % (42.0-75.0); Hematocrit 34.3 % (42.0-52.0); Hemoglobin 11.3 g/dL (14.0-18.0); Mean Corpuscular HGB CONC 32.9 g/dL (32.0-36.0); Mean Corpuscular Hemoglobin 27.8 pg (27.0-31.0); Mean Corpuscular Volume 84.3 fl (78.0-98.0); Mean Platelet Volume 8.8 fL (7.4-10.4); Platelet Count 130 10x3/uL (130-400); RBC Distribution Width 14.6 % (11.5-14.5); Red Blood Cell (RBC) Count 4.07 mill/uL (4.70-6.10); White Blood Cell (WBC) Count 10.9 10x3/uL (4.8-10.8)
[2023-07-11 13:50] LABS: INR-International Normal Ratio 1.4; PTT 38.5 sec (22.9-36.1); Prothrombin Time 18.1 sec (12.0-14.7)
[2023-07-11 14:01] LABS: Anion Gap 14 mmol/L (10-20); BUN (Urea Nitrogen) 16 mg/dL (8.4-25.7); Calc. Creatinine Clearance 93 mL/min (70-130); Calcium 7.9 mg/dL (7.8-10.44); Carbon Dioxide 19 mmol/L (23-31); Chloride 109 mmol/L (98-107); Estimated GFR 83; Glucose 167 mg/dL (83-110); Potassium 3.7 mmol/L (3.5-5.1); Sodium 138 mmol/L (136-145)
[2023-07-11 14:31] VITALS: BMI 28.3
[2023-07-11] MEDS: CEFAZOLIN 2 GM in Sodium Chloride 0.9% 100 ML IVPB SCH ×2 (14:40→21:50)
[2023-07-11] MEDS: Potassium Chloride 20 MEQ/100 ML PREMIX BAG IVPB PRN (16:48)
[2023-07-11 17:29] LABS: Actual Bicarbonate (HCO3a) 20.8 mEq/L (22-28); Base Excess (BEa) -3.6 mEq/L (-2.0 to +3.0); CO2 Tension 35.4 mmHg (35.0-45.0); Carboxyhemoglobin (COHb) 0.4 gm% (0.0-3.0); Hematocrit-ABG 36 % (42.0-52.0); Hemoglobin (Hb) 12.3 g/dL (14.0-18.0); O2 Tension (PaO2), arterial 126.6 mmHg (> 70.0); Potassium - ABG Lab 4.26 mmol/L (3.70-5.30); pH, Arterial 7.387 (7.35-7.45)
[2023-07-11 17:30] LABS: Puncture Site Arterial Line
[2023-07-11] MEDS: Ketorolac Tromethamine 30 MG/ML VIAL IVP SCH ×2 (17:57→23:00)
[2023-07-11 18:31] LABS: Hematocrit 34.3 % (42.0-52.0); Hemoglobin 11.2 g/dL (14.0-18.0)
[2023-07-11 18:52] LABS: Potassium 4.1 mmol/L (3.5-5.1)
[2023-07-11] MEDS: Vancomycin 1.5 GM in Sodium Chloride 0.9% 250 ML 300 ML IVPB SCH (19:37)
[2023-07-11] MEDS: Atorvastatin Calcium 20 MG TAB PO SCH ×2 (20:13→22:57)
[2023-07-11] MEDS: fentaNYL 50 mcg/mL 1 mL Vial SLOW IVP PRN ×2 (20:49→22:58)
[2023-07-11] MEDS ORDERED: Famotidine/PF 20 mg/2ml Vial SLOW IVP SCH (21:00)
[2023-07-12] MEDS: traMADol HCl 50 MG TAB PO PRN ×2 (01:14→20:27)
[2023-07-12] MEDS: fentaNYL 50 mcg/mL 1 mL Vial SLOW IVP PRN ×2 (03:13→08:51)
[2023-07-12 04:54] LABS: #Basophils 0.1 thou/uL (0.0-0.2); #Monocytes 0.7 thou/uL (0.11-0.59); #Neutrophils 8.7 thou/uL (1.40-6.50); %Basophils 0.5 % (0.0-1.0); %Eosinophils 0.1 % (0.0-10.0); %Lymphocytes 5.1 % (21.0-51.0); %Monocytes 6.6 % (0.0-10.0); %Neutrophils 87.3 % (42.0-75.0); Hematocrit 30.7 % (42.0-52.0); Hemoglobin 10.1 g/dL (14.0-18.0); Mean Corpuscular HGB CONC 32.9 g/dL (32.0-36.0); Mean Corpuscular Hemoglobin 27.6 pg (27.0-31.0); Mean Corpuscular Volume 83.9 fl (78.0-98.0); Mean Platelet Volume 9.8 fL (7.4-10.4); Platelet Count 119 10x3/uL (130-400); Red Blood Cell (RBC) Count 3.66 mill/uL (4.70-6.10)
[2023-07-12 05:17] LABS: Anion Gap 10 mmol/L (10-20); BUN (Urea Nitrogen) 19 mg/dL (8.4-25.7); Calc. Creatinine Clearance 91 mL/min (70-130); Carbon Dioxide 20 mmol/L (23-31); Chloride 111 mmol/L (98-107); Estimated GFR 80; Glucose 120 mg/dL (83-110); Sodium 137 mmol/L (136-145)
[2023-07-12] MEDS: Ketorolac Tromethamine 30 MG/ML VIAL IVP SCH ×4 (05:38→23:05)
[2023-07-12] MEDS: CEFAZOLIN 2 GM in Sodium Chloride 0.9% 100 ML IVPB SCH (05:38)
[2023-07-12] MEDS: HYDROcodone/Acetaminophen 5/325 mg Tablet PO PRN ×2 (05:40→11:11)
[2023-07-12] MEDS: Potassium Chloride 20 MEQ/100 ML PREMIX BAG IVPB PRN (05:40)
[2023-07-12 06:39] LABS: CellaVision Operator ID LAB.JMM; Elliptocytes SLIGHT = 2-5 cells HPF (0-1); Ovalocytes SLIGHT = 2-5 cells HPF (0-1); Platelet Adequacy Comment Platelets Decreased
[2023-07-12] MEDS ORDERED: Glucagon 1 MG/ML KIT IM PRN (06:45)
[2023-07-12] MEDS ORDERED: Dextrose 50% Abboject 50 ML SYRINGE SLOW IVP PRN (06:45)
[2023-07-12] MEDS ORDERED: Dextrose 5% in Water 1,000 ML IV PRN (06:45)
[2023-07-12] MEDS ORDERED: Furosemide 40 MG TAB PO SCH (07:30)
[2023-07-12] MEDS ORDERED: Potassium Chloride 10 MEQ TAB PO SCH (08:00)
[2023-07-12] MEDS: Vancomycin 1.5 GM in Sodium Chloride 0.9% 250 ML 300 ML IVPB SCH (08:10)
[2023-07-12] MEDS: Fish Oil 1,000 MG CAP PO SCH ×2 (09:53→20:24)
[2023-07-12] MEDS: Aspirin 325 MG TAB PO SCH (09:53)
[2023-07-12] MEDS: Ascorbic Acid 500 mg Chewable Tablet PO SCH (09:53)
[2023-07-12] MEDS: Ezetimibe 10 MG TAB PO SCH (09:53)
[2023-07-12] MEDS: Magnesium 2 GM/50 ML(in water) 2 GM in Premix 1 BAG IVPB SCH (09:54)
[2023-07-12] MEDS: Ferrous Sulfate 325 MG TAB PO SCH (09:54)
[2023-07-12] MEDS: Insulin Glargine 30 UNITS/0.3 ML VIAL SC SCH (11:15)
[2023-07-12] MEDS: HumaLOG 300 UNITS/3 ML VIAL SC PRN ×3 (11:27→21:15)
[2023-07-12] MEDS ORDERED: Insulin Glargine 30 UNITS/0.3 ML VIAL SC PRN (13:15)
[2023-07-12] MEDS: Atorvastatin Calcium 40 MG TAB PO SCH (20:24)
[2023-07-13] MEDS ORDERED: ALPRAZolam 1 MG TAB PO SCH (00:45)
[2023-07-13] MEDS ORDERED: Labetalol HCl 100 MG/20 ML VIAL SLOW IVP SCH (00:45)
[2023-07-13] MEDS: Ketorolac Tromethamine 30 MG/ML VIAL IVP SCH ×3 (05:16→17:21)
[2023-07-13] MEDS: HumaLOG 300 UNITS/3 ML VIAL SC PRN ×3 (06:27→17:25)
[2023-07-13] MEDS: Magnesium 2 GM/50 ML(in water) 2 GM in Premix 1 BAG IVPB SCH (08:13)
[2023-07-13] MEDS: Aspirin 325 MG TAB PO SCH (08:14)
[2023-07-13] MEDS: Fish Oil 1,000 MG CAP PO SCH ×2 (08:14→21:43)
[2023-07-13] MEDS: Ascorbic Acid 500 mg Chewable Tablet PO SCH (08:14)
[2023-07-13] MEDS: Ezetimibe 10 MG TAB PO SCH (08:15)
[2023-07-13] MEDS: Ferrous Sulfate 325 MG TAB PO SCH (08:15)
[2023-07-13] MEDS: Furosemide 40 MG TAB PO SCH ×2 (08:15→13:18)
[2023-07-13] MEDS: Potassium Chloride 10 MEQ TAB PO SCH ×2 (08:15→17:21)
[2023-07-13] MEDS: Amlodipine 5 MG TAB PO SCH (08:16)
[2023-07-13] MEDS ORDERED: Lisinopril/Hydrochlorothiazide 10 mg/12.5 mg Tablet PO SCH (09:00)
[2023-07-13] MEDS: Insulin Glargine 30 UNITS/0.3 ML VIAL SC SCH (09:56)
[2023-07-13] MEDS ORDERED: Mineral Oil ENEMA PR PRN (12:32)
[2023-07-13] MEDS ORDERED: diphenhydrAMINE 25 MG CAP PO PRN (12:32)
[2023-07-13] MEDS ORDERED: Guaifenesin DM 100-10/5 ML UDCUP PO PRN (12:32)
[2023-07-13] MEDS ORDERED: Zolpidem Tartrate 5 MG TAB PO PRN (12:32)
[2023-07-13] MEDS ORDERED: Artificial Tear Sol 15 ML BOT EA EYE PRN (12:32)
[2023-07-13] MEDS ORDERED: Milk Of Magnesia 30 ML UDCUP PO PRN (12:32)
[2023-07-13] MEDS ORDERED: QUEtiapine 25 MG TAB PO SCH (21:00)
[2023-07-13] MEDS: Atorvastatin Calcium 40 MG TAB PO SCH (21:43)
[2023-07-14] MEDS: Ketorolac Tromethamine 30 MG/ML VIAL IVP SCH ×4 (00:38→17:07)
[2023-07-14] MEDS: QUEtiapine 25 MG TAB PO SCH ×2 (03:53→20:41)
[2023-07-14] MEDS: HumaLOG 300 UNITS/3 ML VIAL SC PRN ×3 (06:22→17:07)
[2023-07-14] MEDS: Fish Oil 1,000 MG CAP PO SCH ×2 (08:39→20:43)
[2023-07-14] MEDS: Insulin Glargine 30 UNITS/0.3 ML VIAL SC SCH (08:40)
[2023-07-14] MEDS: Ferrous Sulfate 325 MG TAB PO SCH (08:41)
[2023-07-14] MEDS: Furosemide 40 MG TAB PO SCH ×2 (08:41→13:07)
[2023-07-14] MEDS: Lisinopril 10 MG TAB PO SCH (08:41)
[2023-07-14] MEDS: Ezetimibe 10 MG TAB PO SCH (08:41)
[2023-07-14] MEDS: Hydrochlorothiazide 25 MG TAB PO SCH (08:41)
[2023-07-14] MEDS: Potassium Chloride 10 MEQ TAB PO SCH ×2 (08:41→17:08)
[2023-07-14] MEDS: Amlodipine 5 MG TAB PO SCH (08:41)
[2023-07-14] MEDS: Aspirin 325 MG TAB PO SCH (08:42)
[2023-07-14] MEDS: Ascorbic Acid 500 mg Chewable Tablet PO SCH (08:42)
[2023-07-14] MEDS ORDERED: Aspirin 325 mg Enteric Coated Tablet PO SCH (09:00)
[2023-07-14] MEDS ORDERED: Tamsulosin HCl 0.4 MG CAP PO SCH (15:30)
[2023-07-14] MEDS: Atorvastatin Calcium 40 MG TAB PO SCH (20:41)
[2023-07-15] MEDS: Fish Oil 1,000 MG CAP PO SCH ×2 (08:46→21:00)
[2023-07-15] MEDS: Tamsulosin HCl 0.4 MG CAP PO SCH (08:47)
[2023-07-15] MEDS: Potassium Chloride 10 MEQ TAB PO SCH ×2 (08:47→17:53)
[2023-07-15] MEDS: Amlodipine 5 MG TAB PO SCH (08:47)
[2023-07-15] MEDS: Lisinopril 10 MG TAB PO SCH (08:47)
[2023-07-15] MEDS: Ezetimibe 10 MG TAB PO SCH (08:47)
[2023-07-15] MEDS: Ferrous Sulfate 325 MG TAB PO SCH (08:47)
[2023-07-15] MEDS: Aspirin 325 MG TAB PO SCH (08:47)
[2023-07-15] MEDS: Hydrochlorothiazide 25 MG TAB PO SCH (08:48)
[2023-07-15] MEDS: Furosemide 40 MG TAB PO SCH ×2 (08:48→14:56)
[2023-07-15] MEDS: Ascorbic Acid 500 mg Chewable Tablet PO SCH (08:48)
[2023-07-15] MEDS: Insulin Glargine 30 UNITS/0.3 ML VIAL SC SCH (08:48)
[2023-07-15] MEDS: traMADol HCl 50 MG TAB PO PRN (11:04)
[2023-07-15] MEDS: Ondansetron PF 4 MG/2 ML Vial IVP PRN (12:06)
[2023-07-15] MEDS: HumaLOG 300 UNITS/3 ML VIAL SC PRN ×2 (12:12→21:15)
[2023-07-15] MEDS ORDERED: Sodium Chloride 0.9% 500 ML IV SCH (15:00)
[2023-07-15] MEDS: Atorvastatin Calcium 40 MG TAB PO SCH (21:00)
[2023-07-16] MEDS: Acetaminophen 325 MG TAB PO PRN ×3 (05:59→21:22)
[2023-07-16] MEDS: HumaLOG 300 UNITS/3 ML VIAL SC PRN ×2 (06:00→17:17)
[2023-07-16] MEDS: Tamsulosin HCl 0.4 MG CAP PO SCH (09:40)
[2023-07-16] MEDS: Potassium Chloride 10 MEQ TAB PO SCH ×2 (09:40→16:51)
[2023-07-16] MEDS: Aspirin 325 MG TAB PO SCH (09:41)
[2023-07-16] MEDS: Fish Oil 1,000 MG CAP PO SCH ×2 (09:41→20:03)
[2023-07-16] MEDS: Amlodipine 5 MG TAB PO SCH (09:42)
[2023-07-16] MEDS: Insulin Glargine 30 UNITS/0.3 ML VIAL SC SCH (09:43)
[2023-07-16] MEDS: Ascorbic Acid 500 mg Chewable Tablet PO SCH (09:44)
[2023-07-16] MEDS: Ezetimibe 10 MG TAB PO SCH (09:44)
[2023-07-16] MEDS: Ferrous Sulfate 325 MG TAB PO SCH (09:46)
[2023-07-16] MEDS: Lisinopril 10 MG TAB PO SCH (09:48)
[2023-07-16] MEDS: Atorvastatin Calcium 40 MG TAB PO SCH (20:03)
[2023-07-17] MEDS: traMADol HCl 50 MG TAB PO PRN ×2 (01:34→13:24)
[2023-07-17] MEDS: Acetaminophen 325 MG TAB PO PRN ×2 (04:33→11:26)
[2023-07-17] MEDS: HumaLOG 300 UNITS/3 ML VIAL SC PRN ×3 (05:55→20:57)
[2023-07-17] MEDS: Insulin Glargine 30 UNITS/0.3 ML VIAL SC SCH (10:51)
[2023-07-17] MEDS: Ascorbic Acid 500 mg Chewable Tablet PO SCH (10:51)
[2023-07-17] MEDS: Fish Oil 1,000 MG CAP PO SCH ×2 (10:53→20:55)
[2023-07-17] MEDS: Aspirin 325 MG TAB PO SCH (10:53)
[2023-07-17] MEDS: Ezetimibe 10 MG TAB PO SCH (10:53)
[2023-07-17] MEDS: Ferrous Sulfate 325 MG TAB PO SCH (10:53)
[2023-07-17] MEDS: Lisinopril 10 MG TAB PO SCH (10:53)
[2023-07-17] MEDS: Potassium Chloride 10 MEQ TAB PO SCH ×2 (10:54→16:26)
[2023-07-17] MEDS: Tamsulosin HCl 0.4 MG CAP PO SCH (10:54)
[2023-07-17] MEDS: Atorvastatin Calcium 40 MG TAB PO SCH (20:56)
[2023-07-17] MEDS: Ondansetron PF 4 MG/2 ML Vial IVP PRN (22:12)
[2023-07-18] MEDS ORDERED: Sterile Water 10 ML ONE (01:53)
[2023-07-18] MEDS ORDERED: Ziprasidone 20 MG VIAL IM SCH (02:00)
[2023-07-18] MEDS ORDERED: Sterile Water 10 ML VIAL FS PRN (02:00)
[2023-07-18 06:50] LABS: #Basophils 0.1 thou/uL (0.0-0.2); #Eosinphils 0.3 thou/uL (0.0-0.7); #Monocytes 0.8 thou/uL (0.11-0.59); %Basophils 0.7 % (0.0-1.0); %Eosinophils 2.8 % (0.0-10.0); %Lymphocytes 10.7 % (21.0-51.0); %Monocytes 8.8 % (0.0-10.0); %Neutrophils 76.3 % (42.0-75.0); Hematocrit 30.3 % (42.0-52.0); Mean Corpuscular Volume 84.9 fl (78.0-98.0); Mean Platelet Volume 9.3 fL (7.4-10.4); Platelet Count 213 10x3/uL (130-400); RBC Distribution Width 14.1 % (11.5-14.5); Red Blood Cell (RBC) Count 3.57 mill/uL (4.70-6.10); White Blood Cell (WBC) Count 9.2 10x3/uL (4.8-10.8)
[2023-07-18 07:12] LABS: Anion Gap 13 mmol/L (10-20); BUN (Urea Nitrogen) 26 mg/dL (8.4-25.7); Calc. Creatinine Clearance 76 mL/min (70-130); Calcium 9.5 mg/dL (7.8-10.44); Carbon Dioxide 22 mmol/L (23-31); Chloride 98 mmol/L (98-107); Estimated GFR 64; Glucose 204 mg/dL (83-110); Potassium 5.1 mmol/L (3.5-5.1); Sodium 128 mmol/L (136-145)
[2023-07-18] MEDS: Fish Oil 1,000 MG CAP PO SCH (09:17)
[2023-07-18] MEDS: Aspirin 325 MG TAB PO SCH (09:18)
[2023-07-18] MEDS: Ezetimibe 10 MG TAB PO SCH (09:18)
[2023-07-18] MEDS: Tamsulosin HCl 0.4 MG CAP PO SCH (09:18)
[2023-07-18] MEDS: Ascorbic Acid 500 mg Chewable Tablet PO SCH (09:19)
[2023-07-18] MEDS: Ferrous Sulfate 325 MG TAB PO SCH (09:20)
[2023-07-18] MEDS: Lisinopril 10 MG TAB PO SCH (09:20)
[2023-07-18] MEDS: Insulin Glargine 30 UNITS/0.3 ML VIAL SC SCH (09:21)
[2023-07-18] MEDS: Potassium Chloride 10 MEQ TAB PO SCH (11:43)
[2023-07-18 12:02] VITALS: TEMP 97.1
[2023-07-18 16:06] VITALS: BP 141/60
== END 2023-07-18 16:50 | disposition home or self-care (01) | DRG 236 ==
LOC: SURG A 07-11 06:38 → CCU 07-11 13:30 → 2NO 07-13 21:07
PROVIDERS: ADMIT Thoracic Surgery (Cardiothoracic Vascular Surgery); ATTEND Thoracic Surgery (Cardiothoracic Vascular Surgery)
PROC: 02100Z9 Bypass Coronary Artery, One Artery from Left Internal Mammary, Open Approach (ICD-10-PCS; principal; 2023-07-11)
PROC: 021009W Bypass Coronary Artery, One Artery from Aorta with Autologous Venous Tissue, Open Approach (ICD-10-PCS; 2023-07-11)
PROC: 06BQ4ZZ Excision of Left Saphenous Vein, Percutaneous Endoscopic Approach (ICD-10-PCS; 2023-07-11)
PROC: 5A1221Z Performance of Cardiac Output, Continuous (ICD-10-PCS; 2023-07-11)
PROC: 02L70CK Occlusion of Left Atrial Appendage with Extraluminal Device, Open Approach (ICD-10-PCS; 2023-07-11)
PROC: 4A133R1 Monitoring of Arterial Saturation, Peripheral, Percutaneous Approach (ICD-10-PCS; 2023-07-11)
PROC: 30233J1 Transfusion of Nonautologous Serum Albumin into Peripheral Vein, Percutaneous Approach (ICD-10-PCS; 2023-07-11)
PROC: 3E033XZ Introduction of Vasopressor into Peripheral Vein, Percutaneous Approach (ICD-10-PCS; 2023-07-11)
DX: I25.10 Atherosclerotic heart disease of native coronary artery without angina pectoris (principal); I35.0 Nonrheumatic aortic (valve) stenosis; E11.9 Type 2 diabetes mellitus without complications; E78.5 Hyperlipidemia, unspecified; I10 Essential (primary) hypertension; I48.0 Paroxysmal atrial fibrillation; R60.0 Localized edema; I95.9 Hypotension, unspecified; R33.9 Retention of urine, unspecified; Z98.890 Other specified postprocedural states; Z90.49 Acquired absence of other specified parts of digestive tract; Z95.1 Presence of aortocoronary bypass graft; Z95.2 Presence of prosthetic heart valve
CPT/HCPCS: 36415; 36416; 36430; 71045; 71046; 80048; 82805; 85025; 85027; 85610; 85730; 86850; 86900; 86901; 93005; 93010; 93798; 94002; A4311; C1713; C1751; C1776; C1889; C2615; J0171; J0360; J1100; J1642; J1644; J1815; J1885; J2001; J2150; J2250; J2260; J2405; J2440; J2720; J3010; J3370; J3475; J3480; J3486; J3490; J7050; P9045; S0017; S0020; S0028

== ENCOUNTER → 2023-08-08 | Day surgery (SDC) | payer MEDICARE ==
[2023-08-05 12:50] VITALS: BMI 27.4
[~2023-08-08] MED LIST changes: -Heparin 10,000 UNITS/ 10 ML VIAL ONE; -Lidocaine 1% (PF) 30 ML VIAL ONE; -Midazolam HCl 2 mg/2 ml Vial ONE; +PHENYLEPHRINE-NS 100 MCG/ML 10 ML SYRINGE ONE; +PROPOFOL 20 ML ONE; +PROPOFOL 200 MG/20 ML VIAL ONE; -fentaNYL 50 mcg/mL 1 mL Vial ONE; -hydrALAZINE 20 MG/ML VIAL ONE
== END ==
LOC: SDC 06:44
PROVIDERS: ATTEND Internal Medicine Cardiovascular Disease
PROC: 5A2204Z Restoration of Cardiac Rhythm, Single (ICD-10-PCS; principal; 2023-08-08)
DX: I48.92 Unspecified atrial flutter (principal); I10 Essential (primary) hypertension; E78.5 Hyperlipidemia, unspecified; I73.9 Peripheral vascular disease, unspecified; I35.0 Nonrheumatic aortic (valve) stenosis; E11.621 Type 2 diabetes mellitus with foot ulcer; L97.521 Non-pressure chronic ulcer of other part of left foot limited to breakdown of skin; Z95.1 Presence of aortocoronary bypass graft; Z79.899 Other long term (current) drug therapy; Z79.84 Long term (current) use of oral hypoglycemic drugs
CPT/HCPCS: 92960; 93005; 93010; J2704

== ENCOUNTER → 2024-08-14 | Emergency (ER) | payer MEDICARE ==
[2024-08-14 17:01] LABS: #Basophils 0.04 10x3/uL (0.0-0.2); %Basophils 0.4 % (0.0-1.0); %Eosinophils 3.5 % (0.0-10.0); %Lymphocytes 17.9 % (21.0-51.0); %Monocytes 8.4 % (0.0-10.0); %Neutrophils 69.4 % (42.0-75.0); Hematocrit 22.4 % (42.0-52.0); Hemoglobin 6.9 g/dL (14.0-18.0); Mean Corpuscular HGB CONC 30.8 g/dL (32.0-36.0); Mean Corpuscular Hemoglobin 23.9 pg (27.0-31.0); Mean Corpuscular Volume 77.5 fL (78.0-98.0); Mean Platelet Volume 8.4 fL (7.4-10.4); Platelet Count 367 10x3/uL (130-400); RBC Distribution Width 14.6 % (11.5-14.5); Red Blood Cell (RBC) Count 2.89 mill/uL (4.70-6.10)
[2024-08-14 17:15] LABS: INR-International Normal Ratio 1.1; Prothrombin Time 13.7 sec (12.0-14.7)
[2024-08-14 17:21] LABS: ALT (SGPT) 11 U/L (8-55); AST (SGOT) 12 U/L (5-34); Albumin 3.6 g/dL (3.4-4.8); Alkaline Phosphatase 88 U/L (40-110); Anion Gap 18 mmol/L (10-20); BUN (Urea Nitrogen) 31 mg/dL (8.4-25.7); Bilirubin, Total 0.4 mg/dL (0.2-1.2); Calc. Creatinine Clearance 0 mL/min (70-130); Calcium 9.2 mg/dL (7.8-10.44); Carbon Dioxide 21 mmol/L (23-31); Chloride 96 mmol/L (98-107); Estimated GFR 42; Globulin 3.3 g/dL (2.4-3.5); Glucose 128 mg/dL (83-110); Potassium 3.7 mmol/L (3.5-5.1); Protein, Total 6.9 g/dL (5.8-8.1); Sodium 131 mmol/L (136-145)
[2024-08-14 18:20] LABS: Troponin I Less than 0.010 ng/mL (< 0.028)
== END ==
LOC: ERS 16:26
DX: D62 Acute posthemorrhagic anemia (principal); E11.9 Type 2 diabetes mellitus without complications; I10 Essential (primary) hypertension
CPT/HCPCS: 36430; 71045; 80053; 83880; 84484; 85025; 85610; 86850; 86900; 86901; 86920; 93005; P9016; 36415; 82274; 96374

== ENCOUNTER 2024-09-04 11:30 | Day surgery (SDC) | payer MEDICARE ==
[2024-09-04] MEDS ORDERED: Acetaminophen 500 MG TAB ONE (12:16)
[2024-09-04] MEDS ORDERED: diphenhydrAMINE 25 MG CAP ONE (12:16)
[2024-09-04] MEDS: Acetaminophen 500 MG TAB PO SCH (12:17)
[2024-09-04] MEDS: diphenhydrAMINE 25 MG CAP PO SCH (12:17)
[2024-09-04 15:02] VITALS: BP 127/61; TEMP 97.8
== END 2024-09-04 15:03 | disposition home or self-care (01) ==
LOC: ONC/OP 11:30
PROVIDERS: ATTEND Family Medicine
DX: D64.9 Anemia, unspecified (principal); D69.6 Thrombocytopenia, unspecified
CPT/HCPCS: 29581; 36430; 80053; 82728; 83540; 83550; 86850; 86900; 86901; 86920; P9016; 36415